=== PATIENT | female | born 2000 | race African-American/Black ===

== ENCOUNTER 2022-04-23 15:28 | Emergency (ER) | payer OTHER, SELFPAY ==
--- NOTE | 2022-04-23 15:35 | ED.ABDPAIN ---
HPI - Abdominal Pain General Chief Complaint: Abdominal Pain Stated Complaint: abd pain Time Seen by Provider: 04/23/22 15:38 Source: patient and RN notes reviewed Mode of arrival: ambulatory Limitations: no limitations History of Present Illness HPI narrative: 21-year-old female presents to the [facility] with complaints of right lower quadrant pain for the last 4 days. Also complains of constipation and cramping. Currently on her period. Denies any nausea or vomiting. Denies any chest pain or shortness of breath. Denies any past medical or surgical history. Denies any frequency, urgency or burning with urination. No vaginal discharge MD elicited complaint: abdominal pain Pertinent past history: none Onset (ago): day(s) (4) Related Data Date of Last Menstrual Period: 04/20/22 Patient : No Home Medications Medication Instructions Recorded Confirmed etonogestrel 0.12 mg-ethinyl 1 vag ring vaginal DIRECTED 04/23/22 04/23/22 estradiol 0.015 mg/24 hr vaginal ring Allergies Allergy/AdvReac Type Severity Reaction Status Date / Time No Known Allergies Allergy Verified 04/23/22 15:45 Review of Systems Review of Systems: All systems reviewed & are unremarkable except as noted in HPI and below Constitutional: Constitutional: Reports no additional constitutional complaints, Denies chills and Denies fever(s) Eyes: Eyes: Reports no additional eye complaints ENT: Reports system reviewed and no additional complaints, except as documented Cardiovascular: Cardiovascular: Reports no additional cardiovascular complaints Respiratory: Respiratory: Reports no additional respiratory complaints Gastrointestinal: Gastrointestinal: Reports as per HPI, Reports abdominal pain (Right lower quadrant), Denies bloating, Reports constipation, Denies heartburn, Denies diarrhea, Denies nausea and Denies vomiting Genitourinary: Genitourinary: Reports no additional female genitourinary complaints, Denies nocturia, Denies dysuria, Denies pelvic pain and Denies flank pain Musculoskeletal: Musculoskeletal: Reports no additional musculoskeletal complaints Integumentary/Breasts: Skin/Breast: Reports system reviewed and no additional complaints, except as docu Neurologic: Reports system reviewed and no additional complaints, except as documented Psychiatric: Psychiatric: Reports no additional psychiatric complaints Allergic/Immunologic: Allergic/Immunologic: Reports no additional allergic/immunologic complaints [facility] Past Medical History Medical History (Updated 04/23/22 @ 19:01 by Romelia Fuchs APRN) Patient denies medical problems Surgical History Surgical History (Updated 04/23/22 @ 15:48 by Romelia Fuchs APRN) No pertinent past surgical history Social History Social History (Updated 04/23/22 @ 15:48 by Romelia Fuchs APRN) Gender identity (if verbalized by the patient): Female Comments At the time of my signature, I reviewed and agree with the nursing past medical, surgical, social, and family history. There is no relevant family history pertinent to the patient complaint. Exam Const: General: healthy appearing, no acute distress and alert Nutritional Appearance: well nourished Orientation/consciousness: patient oriented x3 Limitations: no limitations HENMT: Head: normal to inspection Ears: external ears normal Eyes: General: appearance normal, both eyes and all related structures Pupils: Equal, round and reactive pupils present Neck: Neck: normal visual inspection, no lymphadenopathy and no meningeal signs Chest: Chest palpation & inspection: normal inspection of the chest Resp: Effort & Inspection: normal respiratory effort and no use of accessory muscles Auscultation: clear to auscultation bilaterally, no crackles, no rales, no rhonchi and no wheezes Cardio: Rate: regular rate Rhythm: regular rhythm GI: GI Palp: Yes Soft to palpation and Yes Tenderness to palpation present (GI) (
[2022-04-23 15:37] VITALS: BP 117/73; PULSE 82; RESP 16; TEMP 37.8; O2SAT 100
== END 2022-04-23 15:50 | disposition short-term general hospital (02) ==
PROVIDERS: Emergency Provider Nurse Practitioner; PCP Pediatrics
DX: R10.31 Right lower quadrant pain (principal)
CPT/HCPCS: 81003; 81025; 99202; G0463